=== PATIENT | female | born 1965 | race Caucasian/White ===

== ENCOUNTER 2016-08-04 11:37 | Emergency (ER) | payer OTHER ==
[~2016-08-04] VITALS: Ht 167.6 cm; Wt 81.4 kg
[~2016-08-04 11:37] MED LIST: IRON325T2 PO
[2016-08-04 11:51] VITALS: BP 148/91; PULSE 80; RESP 16; TEMP 98.7; O2SAT 100
[2016-08-04 12:22] VITALS: RESP 16; O2SAT 99
[2016-08-04] MEDS ORDERED: SODIUM CHLORID 0.9% 500 ML INJ 500 ML IV ONE (12:30)
[2016-08-04] MEDS ORDERED: SODIUM CHLORIDE 0.9% FLUSH 5 ML FLUSH IVF PRN (12:30)
[2016-08-04] MEDS ORDERED: ASPIRIN 81 MG CHEW TAB PO ONE (12:30)
[2016-08-04 12:36] LABS: AUTOMATED NEUTROPHIL # 4.8 TH/MM3 (1.8-7.7); BASOPHIL # 0.1 TH/MM3 (0-0.2); BASOPHIL % 1.7 % (0.0-2.0); EOSINOPHIL # 0.2 TH/MM3 (0-0.4); EOSINOPHIL % 2.2 % (0.0-4.0); HEMO FLAGS DIFF FINAL; LYMPH % 30.5 % (9.0-44.0); LYMPHOCYTE # 2.5 TH/MM3 (1.0-4.8); MEAN CELL VOLUME 90.8 FL (80.0-100.0); MEAN CORPUSCULAR HEMOGLOBIN 30.9 PG (27.0-34.0); MONO % 5.6 % (0.0-8.0); PLATELET COUNT 284 TH/MM3 (150-450); RED BLOOD COUNT 4.62 MIL/MM3 (4.00-5.30); RED CELL DISTRIBUTION WIDTH 12.7 % (11.6-17.2); WHITE BLOOD COUNT 8.1 TH/MM3 (4.0-11.0)
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
[2016-08-04 12:44] LABS: CHLORIDE 110 MEQ/L (98-107); POTASSIUM 3.9 MEQ/L (3.5-5.1); SODIUM (NA) 143 MEQ/L (136-145)
[2016-08-04 12:47] LABS: ANION GAP 10 MEQ/L (5-15); BICARBONATE 22.9 MEQ/L (21.0-32.0)
[2016-08-04 12:48] LABS: APTT (PATIENT) 24.1 SEC (24.3-30.1); BLOOD UREA NITROGEN 15 MG/DL (7-18); INTERNATIONAL NORMALIZED RATIO 0.9 RATIO; PROTHROMBIN TIME - PATIENT 9.7 SEC (9.8-11.6)
[2016-08-04 12:50] LABS: ALT (GPT) 31 U/L (10-53)
[2016-08-04 12:51] LABS: AST (GOT) 17 U/L (15-37); GLOMERULAR FILTRATION RATE 77 ML/MIN (>89)
[2016-08-04 12:52] LABS: TOTAL BILIRUBIN ADULT 0.4 MG/DL (0.2-1.0)
[2016-08-04 12:53] LABS: ALKALINE PHOSPHATASE 52 U/L (45-117); CREATINE KINASE 171 U/L (26-192)
--- NOTE | 2016-08-04 12:53 | RADHPO ---
EXAM DATE/TIME: 08/04/2016 12:28 [facility] COMPARISON: No previous studies available for comparison. INDICATIONS : Chest pain. MEDICAL HISTORY : None. SURGICAL HISTORY : None. ENCOUNTER: Initial ACUITY: 3 months PAIN SCORE: 110 LOCATION: Left chest FINDINGS: A single view of the chest demonstrates the lungs to be symmetrically aerated without evidence of mas s, infiltrate or effusion. The cardiomediastinal contours are unremarkable. Osseous structures are intact. CONCLUSION: No acute intrathoracic disease. Kiel Ledesma MD on August 04, 2016 at 12:52 Board Certified Radiologist. This report was verified electronically.
[2016-08-04 13:00] VITALS: BP 149/73; PULSE 84; RESP 16; O2SAT 98
[2016-08-04 13:25] VITALS: BP 156/93
--- NOTE | 2016-08-05 12:02 | EKG ---
Date Performed: 08/04/2016 Time Performed: 12:03:08 PTAGE: 50 years EKG: Sinus rhythm Possible left atrial abnormality Borderline ECG PREVIOUS TRACING : 11/15/2012 07.27 DOCTOR: Jimmie Ng Interpretating Date/Time 08/05/2016 12:00:36
== END 2016-08-04 13:30 | disposition left against medical advice (07) ==
LOC: PHED 11:37
DX: R07.9 Chest pain, unspecified (principal); R01.1 Cardiac murmur, unspecified; R94.31 Abnormal electrocardiogram [ECG] [EKG]; Z87.19 Personal history of other diseases of the digestive system; Z87.39 Personal history of other diseases of the musculoskeletal system and connective tissue; Z53.29 Procedure and treatment not carried out because of patient's decision for other reasons
CPT/HCPCS: 71010; 80053; 82550; 82552; 83880; 84484; 85025; 85610; 85730; 93005; 96360; 99285; J7040